=== PATIENT | female | born 1970 | race Caucasian/White ===

== ENCOUNTER → 2017-09-04 | Emergency (ER) | payer BC ==
[~2017-09-04] VITALS: Ht 170.2 cm; Wt 86.2 kg
[~2017-09-04] MED LIST: KETO10TA2 PO; NORFLEX100MG PO; TOPROL XL50 M1 PO
== END | disposition home or self-care (01) ==
LOC: ER 19:34
DX: I10 Essential (primary) hypertension (principal); M62.838 Other muscle spasm

== ENCOUNTER 2017-09-06 23:16 | Emergency (ER) | payer OTHER ==
[~2017-09-06] VITALS: Ht 172.7 cm; Wt 86.2 kg
== END 2017-09-07 02:31 ==
LOC: ER 23:16
DX: R07.89 Other chest pain (principal); F06.4 Anxiety disorder due to known physiological condition